=== PATIENT | male | born 1990 | race African-American/Black ===

== ENCOUNTER 2023-06-29 05:25 | Emergency (ER) | payer OTHER ==
[~2023-06-29] VITALS: Ht 175.3 cm; Wt 111.1 kg
[2023-06-29 05:40] VITALS: BP 142/87; PULSE 107; RESP 16; TEMP 99.4; O2SAT 94
[2023-06-29 06:20] VITALS: O2SAT 100
[2023-06-29] MEDS ORDERED: KETOROLAC 60 MG/2 ML VIAL IM ONE (06:28)
[2023-06-29] MEDS: KETOROLAC 60 MG/2 ML VIAL IM ONE (06:30)
[2023-06-29] MEDS ORDERED: DOCU-299 PO (06:42)
[2023-06-29] MEDS ORDERED: IBUP-2213 PO (06:42)
[2023-06-29] MEDS ORDERED: HYDR-2734 TP (06:42)
== END 2023-06-29 06:54 | disposition home or self-care (01) ==
LOC: MED 05:25
DX: K64.9 Unspecified hemorrhoids (principal); K21.9 Gastro-esophageal reflux disease without esophagitis; F17.200 Nicotine dependence, unspecified, uncomplicated
CPT/HCPCS: 96372; 99283; J1885